=== PATIENT | female | born 1965 | race Caucasian/White ===

== ENCOUNTER 2022-03-10 09:49 | Emergency (ER) | payer BC, MEDICAID ==
[~2022-03-10] VITALS: Ht 167.6 cm; Wt 79.0 kg
[2022-03-10 10:26] VITALS: BP 139/77
[2022-03-10] MEDS ORDERED: dexamethasone sod phosphate 10mg/ml inj IM STA (11:48)
[2022-03-10] MEDS ORDERED: LIDOcaine 5% patch TP STA (11:48)
[2022-03-10] MEDS ORDERED: ketorolac trometh inj. 60 MG/2 ML VIAL IM ONE (11:50)
== END 2022-03-10 12:45 | disposition home or self-care (01) ==
LOC: ER 09:51
DX: M54.2 Cervicalgia (principal)
CPT/HCPCS: 96372; 99284; J1100; J1885; 93005

== ENCOUNTER 2022-04-22 12:32 | Emergency (ER) | payer BC, MEDICAID ==
[~2022-04-22] VITALS: Ht 167.6 cm; Wt 77.3 kg
[2022-04-22 12:41] VITALS: BP 118/78
== END 2022-04-22 14:23 | disposition home or self-care (01) ==
LOC: ER 12:34
DX: S93.401A Sprain of unspecified ligament of right ankle, initial encounter (principal); W01.0XXA Fall on same level from slipping, tripping and stumbling without subsequent striking against object, initial encounter; Y93.89 Activity, other specified; Y92.89 Other specified places as the place of occurrence of the external cause; Y99.8 Other external cause status
CPT/HCPCS: 73610; 99283

== ENCOUNTER 2022-06-05 15:28 | Emergency (ER) | payer BC, MEDICAID ==
[~2022-06-05] VITALS: Ht 167.6 cm; Wt 79.5 kg
[2022-06-05 15:33] VITALS: BP 127/88
[2022-06-05 15:56] LABS: BASOPHILS % (AUTO) 0.4 % (0-1); EOSINOPHILS # (AUTO) 0.1 X10'3 (0-0.9); EOSINOPHILS % (AUTO) 0.8 % (0-6); HEMATOCRIT 39.1 % (35.0-45.0); HEMOGLOBIN 13.3 g/dl (12.0-16.0); LYMPHOCYTES # (AUTO) 1.9 X10'3 (1.1-4.8); LYMPHOCYTES % (AUTO) 30.1 % (21-51); MEAN CORPUSCULAR HEMOGLOBIN 29.5 PG (27.0-31.0); MEAN CORPUSCULAR VOLUME 86.7 FL (78-98); MEAN PLATELET VOLUME 7.3 FL (7.4-10.4); MONOCYTES # (AUTO) 0.7 X10'3 (0-0.9); MONOCYTES % (AUTO) 10.7 % (2-12); NEUTROPHILS # (AUTO) 3.7 X10'3 (1.8-7.7); PLATELET COUNT 339 X10'3 (140-440); RED BLOOD COUNT 4.51 X10'6 (4.20-5.60); RED CELL DISTRIBUTION WIDTH 13.4 % (11.5-14.5); WHITE BLOOD COUNT 6.4 X10'3 (4.5-11.0)
[2022-06-05 16:00] LABS: CLARITY,URINE SLIGHTLY CLOUDY (Clear); COLOR,URINE YELLOW (Yellow); GLUCOSE, URINE NEGATIVE (Neg); KETONES,URINE NEGATIVE (Neg); LEUKOCYTE ESTERASE ,URINE NEGATIVE (Neg); NITRITES, URINE NEGATIVE (Neg); OCCULT BLOOD,URINE NEGATIVE (Neg); PROTEIN,URINE NEGATIVE (Neg); UROBILINOGEN,URINE 0.2 E.U/dL (0.2-1.0)
[2022-06-05 16:04] LABS: URINE HCG NEGATIVE (NEG)
[2022-06-05 16:14] LABS: UA COLLECTION TYPE CLN CATCH MIDSTREAM
[2022-06-05 16:18] LABS: WBC,URINE 0-4 /HPF (0-4)
[2022-06-05 16:19] LABS: BACTERIA,URINE 1+ /HPF (Neg); MUCUS STRANDS MANY /LPF (Neg); RBC,URINE 0-2 /HPF (0-2); SQUAMOUS EPITHELIAL CELL,UR MANY /LPF (FEW)
[2022-06-05 16:24] LABS: ALANINE AMINOTRANSFERASE 26 U/L (12-78); ALBUMIN 4.1 G/DL (3.4-5.0); ALBUMIN/GLOBULIN RATIO 1.1 (1.1-1.5); ALKALINE PHOSPHATASE 96 IU/L (46-116); ANION GAP 12 (8-16); ASPARTATE AMINO TRANSFERASE 21 U/L (10-37); BILIRUBIN,TOTAL 0.3 MG/DL (0.1-1.0); BLOOD UREA NITROGEN 18 MG/DL (7-18); BUN/CREATININE RATIO 18.8 (10.0-20.0); CALCIUM 9.1 MG/DL (8.5-10.1); CHLORIDE 104 MMOL/L (99-107); CREATININE 0.96 MG/DL (0.40-0.90); GLUCOSE 105 MG/DL (70-104); LIPASE 158 U/L (73-393); POTASSIUM 3.6 MMOL/L (3.5-5.1); SODIUM 140 MMOL/L (135-145); TOTAL CARBON DIOXIDE 24.1 MMOL/L (24-32); eGFR 60 ML/MIN
[2022-06-05] MEDS ORDERED: normal saline 1000ml 1,000 ML IV ONE (18:15)
[2022-06-05] MEDS ORDERED: ketorolac trometh. 30mg/ml inj. IV ONE (18:15)
[2022-06-05] MEDS ORDERED: POLY119P2 PO (18:23)
[2022-06-05] MEDS ORDERED: ONDA4TAB12 PO (18:23)
== END 2022-06-05 18:43 | disposition home or self-care (01) ==
LOC: ER 15:28
DX: R10.31 Right lower quadrant pain (principal); R11.2 Nausea with vomiting, unspecified; Z72.89 Other problems related to lifestyle
CPT/HCPCS: 36415; 76856; 80053; 81001; 81025; 83690; 85025; 93976; 99284

== ENCOUNTER 2022-09-21 17:31 | Inpatient (IN) | payer BC, MEDICAID ==
[~2022-09-21] VITALS: Ht 165.1 cm; Wt 81.8 kg
[~2022-09-21 17:31] MED LIST: ONDA4TAB12 PO; POLY119P2 PO
[2022-09-21 17:56] LABS: BASOPHILS % (AUTO) 0.7 % (0-1); EOSINOPHILS # (AUTO) 0.2 X10'3 (0-0.9); HEMATOCRIT 42.9 % (35.0-45.0); HEMOGLOBIN 14.2 g/dl (12.0-16.0); LYMPHOCYTES % (AUTO) 34.9 % (21-51); MEAN CORPUSCULAR HEMOGLOBIN 28.9 PG (27.0-31.0); MEAN CORPUSCULAR HGB CONC 33.1 g/dL (33.0-36.5); MEAN CORPUSCULAR VOLUME 87.4 FL (78-98); MEAN PLATELET VOLUME 7.8 FL (7.4-10.4); MONOCYTES # (AUTO) 0.5 X10'3 (0-0.9); MONOCYTES % (AUTO) 8.5 % (2-12); NEUTROPHILS # (AUTO) 3.1 X10'3 (1.8-7.7); NEUTROPHILS % (AUTO) 52.9 % (42-75); PLATELET COUNT 332 X10'3 (140-440); RED BLOOD COUNT 4.91 X10'6 (4.20-5.60); RED CELL DISTRIBUTION WIDTH 14.1 % (11.5-14.5); WHITE BLOOD COUNT 5.8 X10'3 (4.5-11.0)
[2022-09-21 18:06] LABS: ALANINE AMINOTRANSFERASE 26 U/L (12-78); ALBUMIN 4.3 G/DL (3.4-5.0); ALBUMIN/GLOBULIN RATIO 1.2 (1.1-1.5); ALKALINE PHOSPHATASE 113 IU/L (46-116); ANION GAP 13 (8-16); ASPARTATE AMINO TRANSFERASE 13 U/L (10-37); BILIRUBIN,TOTAL 0.4 MG/DL (0.1-1.0); BLOOD UREA NITROGEN 19 MG/DL (7-18); BUN/CREATININE RATIO 18.6 (10.0-20.0); CALCIUM 9.5 MG/DL (8.5-10.1); CHLORIDE 105 MMOL/L (99-107); CREATININE 1.02 MG/DL (0.40-0.90); GLUCOSE 131 MG/DL (70-104); POTASSIUM 3.8 MMOL/L (3.5-5.1); SODIUM 142 MMOL/L (135-145); TOTAL CARBON DIOXIDE 24.3 MMOL/L (24-32); TOTAL PROTEIN 7.8 G/DL (6.4-8.2); eGFR 56 ML/MIN
[2022-09-21 18:13] LABS: PRO BRAIN NATRIURETIC PEPTIDE 79 PG/ML (0-125)
[2022-09-21] MEDS ORDERED: aspirin 81mg tab.chew PO ONE (19:30)
[2022-09-21] MEDS ORDERED: nitroGLYCERIN 0.2mg/hour patch TD ONE (19:30)
[2022-09-21] MEDS ORDERED: magnesium hydroxide 30ml (MOM) UD suspension PO PRN (19:35)
[2022-09-21] MEDS ORDERED: regadenoson 0.4mg/5ml syringe IV PRN (19:35)
[2022-09-21] MEDS ORDERED: metoprolol tartrate 1mg/ml inj IV PRN (19:35)
[2022-09-21] MEDS ORDERED: potassium Cl 20 mEq SR tablet PO PRN ×2 (19:35)
[2022-09-21] MEDS ORDERED: nitroGLYCERIN 0.4mg SUBLingual tab SL PRN (19:35)
[2022-09-21] MEDS ORDERED: aminophylline 250mg/10ml inj. IV PRN (19:35)
[2022-09-21] MEDS ORDERED: HYDROcodone/acetaminophen 5mg/325mg tablet PO PRN (19:35)
[2022-09-21] MEDS ORDERED: ondansetron/PF 4mg/2ml inj IV PRN (19:35)
[2022-09-21] MEDS ORDERED: acetaminophen 325mg tablet PO PRN (19:35)
[2022-09-21] MEDS ORDERED: magnesium 4gm in 100ml NS 100 ML IV PRN (19:35)
[2022-09-21] MEDS ORDERED: potassium Cl 40MEQ/1/2NS 520ml 520 ML IV PRN (19:35)
[2022-09-21] MEDS ORDERED: magnesium 2GM in 50ml NS 50 ML IV PRN (19:35)
[2022-09-21] MEDS ORDERED: magnesium Cl slow-release 64mg tablet PO PRN (19:35)
[2022-09-21] MEDS ORDERED: mag hydrox/Alum hydrox/simeth 30ml oral suspension PO PRN (19:35)
[2022-09-21] MEDS ORDERED: morphine 2 MG/ML inj. syringe IV PRN ×2 (19:35)
[2022-09-21 19:49] LABS: APTT 27 SECONDS (22-32); PROTHROMBIN TIME 10.6 SECONDS (9.0-12.0)
[2022-09-21 19:50] LABS: MAGNESIUM 2.3 MG/DL (1.5-2.4)
[2022-09-21] MEDS: K and/or MAG REPLACEMENT MC SCH (20:00)
[2022-09-21] MEDS: docusate sod 100mg capsule PO SCH (20:13)
[2022-09-21] MEDS ORDERED: BUSP5TAB3 PO (21:44)
[2022-09-21] MEDS ORDERED: FAMO20TA8 PO (21:44)
[2022-09-21] MEDS ORDERED: CELE-193 PO (21:44)
[2022-09-21] MEDS ORDERED: CHOL50004 PO (21:44)
[2022-09-21] MEDS ORDERED: GABA-530 PO (21:44)
[2022-09-21] MEDS ORDERED: OMEG1CAP46 PO (21:46)
--- NOTE | 2022-09-21 23:15 | NUR ---
Patient in room PCU 3019. I have received report from Joycelyn AWAD RN and had the opportunity to ask questions and assume patient care.
[2022-09-21 23:30] VITALS: BP 120/69; PULSE 63; RESP 16; TEMP 98.3; O2SAT 96
[2022-09-22] VITALS (12 sets, daily range): BP systolic 101–126; BP diastolic 57–75; PULSE 61–86; RESP 13–18; TEMP 97.9–98.2; O2SAT 96–100
--- NOTE | 2022-09-22 01:07 | NUR ---
PAGED DR. CONLEY FOR ROOM 3019, JENNIFER ALONSO--HAVING TROUBLE SLEEPING AND REQUESTING RESTORIL.
[2022-09-22] MEDS ORDERED: zolpidem 5mg tablet PO PRN (01:35)
[2022-09-22 06:54] LABS: BASOPHILS % (AUTO) 0.9 % (0-1); EOSINOPHILS # (AUTO) 0.2 X10'3 (0-0.9); EOSINOPHILS % (AUTO) 4.1 % (0-6); HEMATOCRIT 39.6 % (35.0-45.0); HEMOGLOBIN 13.3 g/dl (12.0-16.0); LYMPHOCYTES # (AUTO) 2.1 X10'3 (1.1-4.8); LYMPHOCYTES % (AUTO) 37.9 % (21-51); MEAN CORPUSCULAR HEMOGLOBIN 29.4 PG (27.0-31.0); MEAN CORPUSCULAR HGB CONC 33.5 g/dL (33.0-36.5); MEAN CORPUSCULAR VOLUME 87.9 FL (78-98); MEAN PLATELET VOLUME 7.8 FL (7.4-10.4); MONOCYTES # (AUTO) 0.5 X10'3 (0-0.9); MONOCYTES % (AUTO) 9.7 % (2-12); NEUTROPHILS # (AUTO) 2.6 X10'3 (1.8-7.7); NEUTROPHILS % (AUTO) 47.4 % (42-75); PLATELET COUNT 307 X10'3 (140-440); RED BLOOD COUNT 4.51 X10'6 (4.20-5.60); RED CELL DISTRIBUTION WIDTH 13.9 % (11.5-14.5); WHITE BLOOD COUNT 5.4 X10'3 (4.5-11.0)
[2022-09-22 07:08] LABS: ALANINE AMINOTRANSFERASE 24 U/L (12-78); ALBUMIN 3.7 G/DL (3.4-5.0); ALBUMIN/GLOBULIN RATIO 1.1 (1.1-1.5); ALKALINE PHOSPHATASE 91 IU/L (46-116); ANION GAP 9 (8-16); ASPARTATE AMINO TRANSFERASE 13 U/L (10-37); BILIRUBIN,TOTAL 0.4 MG/DL (0.1-1.0); BLOOD UREA NITROGEN 20 MG/DL (7-18); BUN/CREATININE RATIO 18.9 (10.0-20.0); CHLORIDE 107 MMOL/L (99-107); CREATININE 1.06 MG/DL (0.40-0.90); GLUCOSE 103 MG/DL (70-104); MAGNESIUM 2.3 MG/DL (1.5-2.4); SODIUM 142 MMOL/L (135-145); TOTAL CARBON DIOXIDE 26.5 MMOL/L (24-32); eCRCL 54 ML/MIN; eGFR 54 ML/MIN
[2022-09-22 07:13] LABS: CALCIUM 9.4 MG/DL (8.5-10.1)
--- NOTE | 2022-09-22 07:25 | NUR ---
Patient in room PCU 3019. I have received report from Mary and had the opportunity to ask questions and assume patient care.
--- NOTE | 2022-09-22 07:40 | NUR ---
Problems reprioritized. Patient report given, questions answered & plan of care reviewed with Karley FLOYD.
[2022-09-22] MEDS: docusate sod 100mg capsule PO SCH (07:51)
[2022-09-22] MEDS ORDERED: atorvastatin 20mg tablet PO SCH (08:00)
[2022-09-22] MEDS ORDERED: enoxaparin 40mg/0.4ml syringe SUBCUT SCH (08:00)
[2022-09-22] MEDS: K and/or MAG REPLACEMENT MC SCH (08:00)
[2022-09-22] MEDS ORDERED: aspirin 81mg, enteric-coated 1 TAB TABLET.DR PO SCH (08:00)
--- NOTE | 2022-09-22 13:36 | NUR ---
Page sent to Dr Gonzalez - [phone] Scan from this morning came back negative and pt is scheduled for and ECHO soon. She is anxious to DC dorina. Tad Crandall [facility] [id number]
--- NOTE | 2022-09-22 15:09 | NUR ---
Sent to Dr Gonzalez -[address] ECHO results are in. [facility] [phone]
--- NOTE | 2022-09-22 17:15 | NUR ---
Patient discharged accompanied by her father. I DCed IV and tele and returned telebox to [facility]. Discharge instuctions given to patient and she stated understanding. She had no c/o pain or discomfort at the time of discharge. Patient left in private vehicle.
[2022-09-22] MEDS ORDERED: PANT-47 PO (17:24)
== END 2022-09-22 17:29 | disposition home or self-care (01) | DRG 392 ==
LOC: ER 17:31 → ED HOLD 19:38 → PCU 3S 23:30
PROVIDERS: ADMIT Internal Medicine; ATTEND Internal Medicine
PROC: 4A02XM4 Measurement of Cardiac Total Activity, External Approach (ICD-10-PCS; principal; 2022-09-22)
PROC: 3E073KZ Introduction of Other Diagnostic Substance into Coronary Artery, Percutaneous Approach (ICD-10-PCS; 2022-09-22)
DX: K21.9 Gastro-esophageal reflux disease without esophagitis (principal); I20.0 Unstable angina; E28.2 Polycystic ovarian syndrome; R94.31 Abnormal electrocardiogram [ECG] [EKG]; E78.00 Pure hypercholesterolemia, unspecified; Z80.1 Family history of malignant neoplasm of trachea, bronchus and lung; Z82.49 Family history of ischemic heart disease and other diseases of the circulatory system; Z79.899 Other long term (current) drug therapy
CPT/HCPCS: 36415; 71045; 78452; 80053; 83735; 83880; 84484; 85025; 85610; 85730; 87081; 93005; 93017; 93306; 99285; A9500; G0378; J2785